=== PATIENT | male | born 1960 | race Caucasian/White ===

== ENCOUNTER 2023-10-11 18:54 | Emergency (ER) | payer OTHER, SELFPAY ==
--- NOTE | ~2023-10-11 | XR_ITS ---
EXAM: XR ankle RT 2V, XR ankle LT 2V DATE: 10/11/2023 19:55 HISTORY: Fall . COMPARISON: None available. FINDINGS: Decreased mineralization. Small avulsion fracture fragment at the tip of the right lateral malleolus. No lytic or blastic lesion. Joint spaces are maintained. No erosion or periosteal change. Diffuse subcutaneous edema/swelling bilaterally. IMPRESSION: Small avulsion fracture at the tip of right lateral malleolus. No acute osseous finding i n the left ankle. Reviewed, dictated and finalized at location K. IMPRESSION: Small avulsion fracture at the tip of right lateral malleolus. No a cute osseous finding in the left ankle.
--- NOTE | ~2023-10-11 | CT_ITS ---
EXAMINATION: CT thoracic lumbar wo con DATE: 10/11/2023 21:24 INDICATION: Fall . TECHNIQUE: Computed tomography (CT) of the thoracic and lumbar spine was performed without intravenou s contrast. The dose-length product was 2377.66 mGy-cm. COMPARISON: None FINDINGS: THORACIC SPINE: Severe osteopenia. Vertebral body alignment intact. Mild scoliosis. Mild anterior wedge deformity at T11, the remaining vertebral body heights are preserved. Mild multilevel degenerative disc disease. N o traumatic malalignment or fracture. Visualized lung parenchyma is clear. No severe central canal or neural foraminal narrowing. LUMBAR SPINE: Severe osteopenia. Mild scoliosis. 5 nonrib-bearing lumbar-type vertebral bodies. Pedicles intact. No rmal vertebral body alignment. Vertebral body heights preserved. Mild multilevel degenerative disc di sease. No severe central canal or neural foraminal narrowing. Normal facets and posterior elements. IMPRESSION: Mild anterior wedge deformity at T11, may represent physiologic morphology or acute/chronic compressi on fracture, correlate with pain/tenderness. Otherwise no acute fracture or traumatic malalignment detected in the thoracic or lumbar spine. Reviewed, dictated and finalized at location K. IMPRESSION: Mild anterior wedge deformity at T11, may represent physiologic morphology or a cute/chronic compression fracture, correlate with pain/tenderness. Otherwise no acute fracture or traumatic malalignment detected in the thoracic or lumbar spine.
--- NOTE | ~2023-10-11 | XR_ITS ---
EXAMINATION: XR chest 1V portable Exam Date/Time: 10/11/2023 19:45 CDT HISTORY: dyspnea Comparison: None. RESULT: Lines, tubes, and devices: None. Lungs and pleura: Lordotic positioning. Low volumes with crowding. Otherwise clear. Cardiomediastinal silhouette: Stable. Other: No acute osseous or upper abdominal finding. IMPRESSION: No acute cardiopulmonary process. Reviewed, dictated and finalized at location K.
--- NOTE | ~2023-10-11 | XR_ITS ---
EXAM: XR elbow RT min 3V DATE: 10/11/2023 19:55 HISTORY: Fall . COMPARISON: None available. FINDINGS: Normal mineralization. No fracture or dislocation. No lytic or blastic lesion. Mild elbow joint degenerative change. Small radial head cleft or subchondral cyst. No erosion or periosteal sanz ge. Soft tissues within normal limits. IMPRESSION: No acute osseous finding in the right elbow. Reviewed, dictated and finalized at location K.
--- NOTE | ~2023-10-11 | CT_ITS ---
EXAMINATION: CT cervical spine wo con DATE: 10/11/2023 20:51 INDICATION: Fall TECHNIQUE: Computed tomography (CT) of the cervical spine was performed without intravenous contrast. Automated exposure control and iterative reconstruction technique were employed. The dose-length pro duct was 573.85 mGy-cm. COMPARISON: None. FINDINGS: Vertebral Body Alignment: Intact. Craniocervical and atlantoaxial alignment: Moderate degenerative change. Alignment intact. Osseous structures/fracture: No evidence of a lytic or blastic process in the visualized spine. No e vidence of acute fracture. Cervical soft tissues: The paraspinal soft tissues planes are maintained. Degenerative changes: No significant degenerative changes. IMPRESSION: No acute fracture or traumatic malalignment in the cervical spine. Reviewed, dictated and finalized at location K.
--- NOTE | ~2023-10-11 | CT_ITS ---
EXAMINATION: CT brain wo con DATE: 10/11/2023 20:51 INDICATION: Fall . TECHNIQUE: Computed tomography (CT) of the head was performed without intravenous contrast. The mA wa s adjusted according to patient size. Iterative reconstruction technique was employed. The dose-lengt h product was 605.33 mGy-cm. COMPARISON: None. FINDINGS: No acute intracranial hemorrhage or extra-axial fluid collection. No hydrocephalus, mass, or herniation. No acute ischemic infarct. Unremarkable dural venous sinus attenuation. No acute osseous abnormality. The aerated spaces are clear. Mild atrophy and chronic white matter change. Atherosclerotic intracranial calcification. IMPRESSION: No acute intracranial process. Reviewed, dictated and finalized at location K.
[2023-10-11 18:57] VITALS: BP 174/113; PULSE 110; RESP 19; TEMP 36.2; O2SAT 95
[2023-10-11 19:00] VITALS: BP 155/86
--- NOTE | 2023-10-11 19:18 | PC.NURSE ---
patient report received from MICHELLE Pompa for continuation of care into night supervisor.
--- NOTE | 2023-10-11 19:34 | PC.NURSE ---
interventional radiology tech at bedside for imaging.
--- NOTE | 2023-10-11 19:47 | ED.GENADULT ---
HPI - General Adult General Chief complaint: Fall Stated complaint: Fall/L foot pain/back/neck Time Seen by Provider: 10/11/23 19:15 History of Present Illness HPI narrative: This is a 63-year-old male on Eliquis for recurrent DVT/ PE presenting 2 days after a fall. He was unloading cabinets from a moving truck when he lost his balance and fell backwards landing on his back and then striking his head. No loss of consciousness at that time. Patient continued about his normal activities until today he started to have worsening body pains. He has pain in his left ankle, right biceps, neck, and lower back. No altered mental status, neurologic deficits chest pain difficulty breathing abdominal pain. patient has a history of chronic back pain. Related Data Home Medications Medication Instructions Recorded Confirmed amlodipine 10 mg tablet 10 mg PO DAILY 10/11/23 10/11/23 apixaban 5 mg tablet (Eliquis) 5 mg PO BID 10/11/23 10/11/23 atorvastatin 10 mg tablet 10 mg PO DAILY 10/11/23 10/11/23 furosemide 20 mg tablet 20 mg PO DAILY 10/11/23 10/11/23 lisinopril 40 mg tablet 40 mg PO DAILY 10/11/23 10/11/23 metformin 500 mg tablet,extended 500 mg PO BID 10/11/23 10/11/23 release 24 hr oxycodone 20 mg tablet,crush 20 mg PO DAILY 10/11/23 10/11/23 resistant,extended release 12 hr (OxyContin) Allergies Allergy/AdvReac Type Severity Reaction Status Date / Time No Known Allergies Allergy Verified 10/11/23 19:09 Exam Narrative: APPEARANCE: Patient appears uncomfortable Head: atraumatic. EYES: EOMI, NOSE: Atraumatic NECK/back: no midline spinal tenderness. Tenderness palpation along the paracervical and paralumbar muscles. RESPIRATORY: No increased rate of breathing CARDIOVASCULAR: RRR, Plus two pitting edema of the lower extremities which patient states is chronic ABDOMINAL: Non-distended soft nontender MUSCULOSKELETAl: focal exam of the left ankle revealed tenderness over the talotibial joint. No significant bruising. no tenderness to the base of the 5th metacarpal along the posterior malleoli. Focal exam of the right upper extremity revealed no significant bruising. Compartments are soft. Pain with activation of the biceps full range of motion at the elbow. neurovascularly intact in the hand NEURO: Alert. Cranial nerves 2-12 grossly intact. Sensation light touch, motor function cerebellar function intact for 4 extremities. Gait exam was normal. SKIN:: Warm, dry. Normal color PSYCHIATRIC: Normal affect Course Vital Signs Vital signs: Vital Signs Temperature 97.2 F L 10/11/23 18:57 Pulse Rate 110 H 10/11/23 18:57 Respiratory Rate 19 10/11/23 18:57 Blood Pressure 174/113 H 10/11/23 18:57 Pulse Oximetry 95 10/11/23 18:57 Oxygen Delivery Room Air 10/11/23 18:57 Temperature 97.9 F 10/11/23 20:56 Pulse Rate 99 10/11/23 20:56 Respiratory Rate 18 10/11/23 20:56 Blood Pressure 147/102 H 10/11/23 20:56 Pulse Oximetry 94 10/11/23 20:56 Oxygen Delivery Room Air 10/11/23 20:56 Medical Decision Making [facility] Narrative Medical decision making narrative: -Course: 63-year-old male presenting 2 days after mechanical fall with complaints of pain to multiple areas including both ankles, right elbow/ biceps head neck and lower back. X-rays of the ankle showed a lateral avulsion fracture right ankle. The patient is not tender over that area this is likely an old injury. Patient's pain is a more significant on the left ankle which likely has an ankle sprain. He is placed in Charly bandage wrap. CT head and C-spine unremarkable. -DDX includes but is not limited to: Soft tissue injury, bony injury, ICH -Independent interpretation of studies: CT head and C-spine negative for acute injury. Chest x-ray unremarkable. Right ankle showed avulsion fracture of the lateral malleolus -no point tenderness over that area is likely an older injury Left ankle unremarkable. CT of the T
[2023-10-11] MEDS: oxyCODONE HCL (*CRX) 5 MG TAB IR PO (19:49)
[2023-10-11] MEDS: ACETAMINOPHEN 500 MG TABLET 1000 MG PO (19:53)
--- NOTE | 2023-10-11 19:56 | PC.NURSE ---
patient medicated for pain at this time, see MAR. mother at bedside, both given drink and warm blankets for comfort. update provided.
[2023-10-11 20:56] VITALS: BP 147/102; PULSE 99; RESP 18; TEMP 36.6; O2SAT 94
--- NOTE | 2023-10-11 20:57 | PC.NURSE ---
patient resting on stretcher using cell phone without distress, mother at bedside. patient reports improved pain post media manager. RN monitoring, patient awaiting ct imaging results and plan. call light within reach.
--- NOTE | 2023-10-11 21:36 | PC.NURSE ---
patient left ankle wrapped with TERE bandage and gel surround ankle splint for comfort. education provided regarding RICE method and patient awaiting results of thoracic CT spine. radiology aware of request for disc on patient behalf.
--- NOTE | 2023-10-11 21:45 | PC.NURSE ---
Dr. Ribeiro at bedside for patient update.
== END 2023-10-11 22:15 | disposition home or self-care (01) ==
PROVIDERS: Emergency Provider Emergency Medicine
DX: S93.402A Sprain of unspecified ligament of left ankle, initial encounter (principal); M54.50 Low back pain, unspecified; W19.XXXA Unspecified fall, initial encounter; Z79.01 Long term (current) use of anticoagulants; Z86.718 Personal history of other venous thrombosis and embolism
CPT/HCPCS: 70450; 71045; 72125; 72128; 72131; 73080; 73600; 99284; A9270; L4350